=== PATIENT | female | born 1965 | race African-American/Black ===

== ENCOUNTER 2019-07-29 17:51 | Observation (INO) | payer OTHER ==
[~2019-07-29] VITALS: Ht 165.1 cm; Wt 95.3 kg
[~2019-07-29 17:51] MED LIST: BIRTH CONTROL
[2019-07-29 17:59] VITALS: BP 172/102
[2019-07-29 18:57] LABS: ANION GAP 6 mmol/L (7-16); BUN 7 mg/dL (7-18); CALCIUM 9.5 mg/dL (8.5-10.1); CHLORIDE 102 mmol/L (98-107); CO2 27 mmol/L (21-32); CREATININE 0.8 mg/dL (0.6-1.0); GLUCOSE 88 mg/dL (74-106); POTASSIUM 3.9 mmol/L (3.5-5.1); SODIUM 135 mmol/L (136-145)
[2019-07-29 19:06] LABS: TROPONIN-I <0.06 ng/mL (<0.06)
[2019-07-29 19:22] LABS: HEMATOCRIT 35.8 % (37.0-47.0); HEMOGLOBIN 11.2 gm/dL (12.0-15.0); MCH 25.2 pg (26.0-34.0); MCHC 31.2 g/dL (28.0-37.0); MCV 80.9 fL (80.0-100.0); RBC 4.42 mil/uL (4.20-5.00); RDW 15.3 % (10.5-14.5); WBC 7.7 thou/uL (4.0-11.0)
[2019-07-29 21:49] VITALS: BP 146/81
--- NOTE | 2019-07-29 21:56 | NUR ---
SOCIAL PSYCHOLOGIST CALLED IN PATIENT UNIT TO GIVE REPORT TO RN WHO WILL BE TAKING CARE OF PT, WAS TOLD NURSE WAS IN THE MIDDLE OF PT CARE AND WILL RETURN CALL SOON SHE'S DONE.
[2019-07-29 22:07] VITALS: BP 174/91
[2019-07-29 22:09] VITALS: BP 146/81
[2019-07-29 22:41] VITALS: BP 159/93; BP 59/93
[2019-07-29 23:06] LABS: CHOLESTEROL 148 mg/dL (<200); HDL CHOLESTEROL 44 mg/dL (>40); LDL CHOLESTEROL 94 mg/dL (<100); TC:HDL 3.4 Ratio (Not establshd); TRIGLYCERIDE 53 mg/dL (<150); VLDL 11 mg/dL (<40)
[2019-07-29 23:08] LABS: SERUM ASSESSMENT Clear
--- NOTE | 2019-07-30 00:55 | NUR ---
ASSUMED CARE OF PT FROM ED [place] 2230HRS. PT IS AOX4 AND AGREES TO LET NEEEDS BE KNOWN. PT IS AD FABY WITH A STEAD GAIT. PT WAS OTIENTED TO THE UNIT AND HER ROOM. PT DENIES PAIN AT THIS TIME. PT DOES NOT TAKE TAKE ANY PRESCIPTION MEDS. PT DOES NOT HAVE ANY KNOWN ALLERGY. PT UNDERSTANDS TEACHING. PT IS NPO AT THIS TIME. ORDERS RECEIVED AND INITIATED. PT HAS HTN BUT OTHER VS ARE STABLE. WILL CONTINUE TO MONITOR.
[2019-07-30 04:45] VITALS: BP 126/62
[2019-07-30 06:22] LABS: ANION GAP 6 mmol/L (7-16); BUN 7 mg/dL (7-18); CALCIUM 8.9 mg/dL (8.5-10.1); CHLORIDE 102 mmol/L (98-107); CO2 26 mmol/L (21-32); CREATININE 0.8 mg/dL (0.6-1.0); GLUCOSE 108 mg/dL (74-106); POTASSIUM 3.9 mmol/L (3.5-5.1); SODIUM 134 mmol/L (136-145)
[2019-07-30 06:30] LABS: TROPONIN-I <0.06 ng/mL (<0.06)
[2019-07-30 07:59] VITALS: BP 123/59
--- NOTE | 2019-07-30 08:30 | EKG ---
[facility] [place] [address] ELECTROCARDIOGRAM REPORT Name: SONY JOSEPH Room #: 206-[facility] M.R.#: [id number] Admission: 07/29/19 Attend Phys: Hadley Cruz MD Discharge: Date of : 61 Report #: [id number] THIS REPORT FOR: cc: Nelli Mccollum MD, Karla L. MD Couchonnal, Luis F. 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 : 1965 Requested By: Cecile Portillo Order Number: [id number] MD: Levi Kovacs Measurements Intervals [place] Rate: 67 P: 31 TX: 138 QRS: 10 QRSD: 91 T: -5 QT: 412 QTc: 435 Interpretive Statements Sinus rhythm Low voltage, precordial leads Borderline T abnormalities, diffuse leads Baseline wander in lead(s) V3 Compared to ECG 01/21/2015 15:20:18 Low QRS voltage now present T-wave abnormality now present Electronically Signed On 07-30-2019 8:29:15 GILL TENDER by Levi Kovacs [email or web address] <ELECTRONICALLY SIGNED> By: Levi Kovacs MD 07/30/19 0829 54 54 Levi Kovacs MD /EPI
--- NOTE | 2019-07-30 08:32 | EKG ---
[facility] [place] [address] ELECTROCARDIOGRAM REPORT Name: SONY JOSEPH Room #: 206-[facility] M.R.#: [id number] Admission: 07/29/19 Attend Phys: Hadley Cruz MD Discharge: Date of : 61 Report #: [id number] THIS REPORT FOR: cc: Nelli Mccollum MD, Karla L. MD Couchonnal, Luis F. 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 : 1965 Requested By: Shannon Askew Order Number: [id number] MD: Levi Kovacs Measurements Intervals [place] Rate: 59 P: 37 ME: 150 QRS: 14 QRSD: 81 T: -9 QT: 426 QTc: 422 Interpretive Statements Sinus rhythm Low voltage, precordial leads Borderline T abnormalities, inferior leads Compared to ECG 01/21/2015 15:20:18 Low QRS voltage now present T-wave abnormality now present Electronically Signed On 07-30-2019 8:31:43 ORTHOPEDIC TECH by Levi Kovacs [email or web address] <ELECTRONICALLY SIGNED> By: Levi Kovacs MD 07/30/1931 0 0 Levi Kovacs MD /EPI
--- NOTE | 2019-07-30 12:18 | 2DMMODE ---
[facility] [address] [place] [address] 2 D/M-MODE ECHOCARDIOGRAM Name: SONY JOSEPH Room #: 206-P ADM [facility] M.R.#: [id number] Admission: 07/29/19 Attend Phys: Hadley Cruz MD Discharge: Date of : 61 Report #: [id number] THIS REPORT FOR: cc: Nelli Mccollum MD, Karla L. MD Lammoglia, Francisco J. MD ~ APPROVED REPORT Study performed: 07/30/2019 11:34:45 EXAM: Comprehensive 2D, Doppler, and color-flow Echocardiogram Patient Location: Echo lab Room #: 206 Status: routine BSA: 2.02 HR: 57 bpm BP: 123/59 mmHg Rhythm: NSR Other Information Study Quality: Adequate Indications Chest pain, HTN. 2D Dimensions RVDd: 29.35 mm IVSd: 10.23 (7-11mm) LVOT Diam: 21.65 (18-24mm) LVDd: 49.35 mm PWd: 9.68 (7-11mm) LVDs: 31.69 (25-40mm) Aortic Root: 36.16 mm Volumes Left Atrial Volume (Systole) Single Plane 4CH: 42.02 mL Single Plane 2CH: 43.52 mL LA ESV Index: 23.00 mL/m2 Aortic Valve AoV Peak Dominick.: 1.24 m/s AO Peak Gr.: 6.16 mmHg LVOT Max P.52 mmHg LVOT Max V: 1.17 m/s REBECCA Vmax: 3.48 cm2 [facility] [address] [place] [address] 2 D/M-MODE ECHOCARDIOGRAM Name: JAKESONY Dominique Room #: 206-P [facility] IN ..#: [id number] Admission: 07/29/19 Attend Phys: Hadley Cruz MD Discharge: Date of : 61 Report #: [id number] Mitral Valve E/A Ratio: 1.7 MV Decel. Time: 148.96 ms MV E Max Dominick.: 1.00 m/s MV A Dominick.: 0.60 m/s MV PHT: 43.20 ms IVRT: 73.82 ms Pulmonary Valve PV Peak Dominick.: 0.84 m/s PV Peak Gr.: 2.79 mmHg Pulmonary Vein P Vein S: 0.55 m/s P Vein A: 0.36 m/s P Vein D: 0.44 m/s P Vein A Dur.: 166.1 msec P Vein S/D Ratio: 1.25 Tricuspid Valve TR Peak Dominick.: 2.41 m/s RAP Estimate: 5.00 mmHg TR Peak Gr.: 23.15 mmHg PA Pressure: 28.00 mmHg Left Ventricle The left ventricle is normal size. There is normal LV segmental wall motion. There is normal left ventricular wall thickness. Left ventricular systolic function is normal. LVEF is 60-65%. The left ventricular diastolic function is normal. Right Ventricle The right ventricle is normal size. The right ventricular systolic function is normal. Atria The left atrium size is normal. The right atrium size is normal. Aortic Valve The aortic valve is normal in structure. Trace aortic regurgitation. There is no aortic valvular stenosis. Mitral Valve The mitral valve is normal in structure. Trace mitral regurgitation. Tricuspid Valve The tricuspid valve is normal in structure. Mild tricuspid regurgitation. Estimated PAP is 25-30mmHg. [facility] [place] [place] [address] 2 D/M-MODE ECHOCARDIOGRAM Name: SONY JOSEPH Room #: 206-P [facility] IN .R.#: [id number] Admission: 07/29/19 Attend Phys: Hadley Cruz MD Discharge: Date of : 61 Report #: [id number] Pulmonic Valve The pulmonary valve is normal in structure. Trace pulmonic regurgitation. Great Vessels The aortic root is normal in size. The ascending aorta is normal in size. IVC is normal in size and collapses >50% with inspiration. Pericardium There is no pericardial effusion. <Conclusion> The left ventricle is normal size. LVEF is 60-65%. The aortic valve is normal in structure. Trace aortic regurgitation. The mitral valve is normal in structure. Trace mitral regurgitation. The tricuspid valve is normal in structure. Mild tricuspid regurgitation. Estimated PAP is 25-30mmHg. The pulmonary valve is normal in structure. Trace pulmonic regurgitation. There is no pericardial effusion. <ELECTRONICALLY SIGNED> By: Judah Chris MD 07/30/191216 16 16 Judah Chris MD /INF
[2019-07-30 15:19] VITALS: BP 129/76
[2019-07-30] MEDS ORDERED: ASPIR 8181 MG PO (16:32)
[2019-07-30] MEDS ORDERED: NORVASC5 MG PO (16:32)
[2019-07-30 16:54] VITALS: BP 129/76
[2019-07-31 02:08] LABS: GLYCOHEMOGLOBIN (HGB A1C) 5.6 % (4.8-5.6)
== END 2019-07-30 18:43 | disposition home or self-care (01) ==
LOC: ER 17:51 → EROBS 21:27 → 2N 21:27 → ENTRNSPT 07-30 18:07 → 2N 07-30 18:43
PROVIDERS: Emergency Medicine Emergency Medical Services; Nurse Practitioner Family; ADMIT Hospitalist
DX: R07.89 Other chest pain (principal); I10 Essential (primary) hypertension; Z90.49 Acquired absence of other specified parts of digestive tract; Z98.890 Other specified postprocedural states

== ENCOUNTER 2021-06-21 10:22 | Emergency (ER) | payer OTHER ==
[~2021-06-21] VITALS: Ht 162.6 cm; Wt 96.2 kg
[~2021-06-21 10:22] MED LIST changes: +ASPIR 8181 MG PO; +NORVASC5 MG PO
[2021-06-21 10:58] LABS: ABSOLUTE NEUTROPHILS 4.1 thou/uL (1.4-8.2); BASOPHILS 0.7 % (0.0-2.0); EOSINOPHILS 4.1 % (0.0-3.0); HEMATOCRIT 39.2 % (37.0-47.0); HEMOGLOBIN 12.4 gm/dL (12.0-15.0); LYMPHOCYTES 23.6 % (24.0-44.0); MCH 25.4 pg (26.0-34.0); MCHC 31.6 g/dL (28.0-37.0); MCV 80.2 fL (80.0-100.0); MONOCYTES 5.2 % (1.0-8.0); PLATELET COUNT 349 thou/uL (150-400); POLYS 66.4 % (36.0-66.0); RBC 4.88 mil/uL (4.20-5.00); RDW 15.4 % (10.5-14.5); WBC 6.2 thou/uL (4.0-11.0)
[2021-06-21 11:06] LABS: ANION GAP 8 mmol/L (7-16); BUN 9 mg/dL (7-18); CHLORIDE 105 mmol/L (98-107); CO2 27 mmol/L (21-32); CREATININE 0.9 mg/dL (0.6-1.0); GLUCOSE 101 mg/dL (74-106); POTASSIUM 3.9 mmol/L (3.5-5.1); SODIUM 140 mmol/L (136-145)
[2021-06-21 11:15] LABS: ALBUMIN 3.6 g/dL (3.4-5.0); SGOT 25 U/L (15-37); SGPT 46 U/L (14-59); TOTAL BILIRUBIN 0.2 mg/dL (0.2-1.0); TOTAL PROTEIN 8.4 g/dL (6.4-8.2)
[2021-06-21 12:33] VITALS: BP 139/70
--- NOTE | 2021-06-21 17:23 | EKG ---
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 : 1965 Requested By: Nuria Henry Order Number: [id number] MD: Ravinder Sauer Measurements Intervals [place] Rate: 62 P: 27 MD: 145 QRS: -1 QRSD: 84 T: -15 QT: 411 QTc: 418 Interpretive Statements Sinus rhythm Nonspecific T wave abnormality Compared to ECG 07/30/2019 07:01:47 No significant changes Electronically Signed On 06-21-2021 17:23:48 BUSINESS STRATEGIST by Ravinder Sauer [email or web address] <ELECTRONICALLY SIGNED> By: Ravinder Sauer MD, [facility] 06/21/21 1723 1028 1028 Ravinder Sauer MD, FACC /EPI
== END 2021-06-21 12:35 | disposition home or self-care (01) ==
LOC: ER 10:22
PROVIDERS: Student in an Organized Health Care Education/Training Program
DX: U07.1 COVID-19 (principal); R07.89 Other chest pain; I10 Essential (primary) hypertension; Z90.49 Acquired absence of other specified parts of digestive tract